=== PATIENT | male | born 1965 | race Caucasian/White ===

== ENCOUNTER 2020-07-13 18:52 | Inpatient (IN) ==
[2020-07-13 20:05] LABS: Basophils % 0.4 %; Eosinophils # 0.5 K/mcL (0.0-0.6); Eosinophils % 4.4 %; Hematocrit 30.6 % (37.5-50.1); Hemoglobin 9.1 g/dL (12.9-16.9); Immature Granulocytes % 4.5 % (0-4); Lymphocytes # 1.4 K/mcL (0.6-4.6); Lymphocytes % 12.9 %; Mean Corpuscular HGB Conc 29.7 g/dL (31.6-35.5); Mean Corpuscular Volume 94.2 fL (83.0-100.0); Mean Platelet Volume 10.3 fL (9.4-12.4); Monocytes % 8.7 %; Neutrophils # 7.6 K/mcL (1.6-8.9); Platelet Count 149 K/mcL (140-400); Red Blood Count 3.25 M/mcL (4.19-5.50); Red Cell Distribution Width 16.4 % (11.5-14.5); Segmented Neutrophils % 69.1 %
[2020-07-13 20:15] LABS: BUN/Creatinine Ratio 14 (6-26); Blood Urea Nitrogen 37 mg/dL (6-20); Calcium 8.1 mg/dL (8.6-10.3); Carbon Dioxide 24 mEq/L (23-29); Chloride 106 mEq/L (98-107); Glucose 135 mg/dL (70-105); Osmolality,Calculated 299 (280-300); Potassium 4.1 mEq/L (3.5-5.1); Prothrombin Time 12.1 Seconds (9.4-12.1); Sodium 139 mEq/L (136-145); eGFR For African Americans 32 (> 60); eGFR For Non-African Americans 26 (> 60)
[2020-07-13 20:16] LABS: Troponin I < 0.03 ng/mL (< 0.04)
[2020-07-13 20:17] LABS: Activated Partial Thrombo Time 28.1 Seconds (26.0-36.0)
[2020-07-13] MEDS ORDERED: 0.9 % Sodium Chloride 1,000 ML IVC ONE (21:44)
[2020-07-14] MEDS ORDERED: Perflutren Lipid Microsphere 1.3 ML in 0.9 % Sodium Chloride 8.7 ML IVP PRN (00:01)
[2020-07-14] MEDS ORDERED: Calcium Gluconate 1gm/50mL 1 GM/50 ML BAG IVPB ONE (00:07)
[2020-07-14] MEDS ORDERED: Naloxone 0.4 MG/ML INJ IVP PRN (00:09)
[2020-07-14] MEDS ORDERED: Acetaminophen 325 MG TABLET PO PRN (00:09)
[2020-07-14] MEDS ORDERED: Ondansetron 4 MG/2 ML VIAL IVP PRN (00:09)
[2020-07-14] MEDS: Aspirin Enteric Coated 81 MG Tablet PO SCH ×2 (00:58→07:50)
[2020-07-14 01:13] LABS: Bilirubin,Urine Negative (Negative); Blood,Urine Negative (Negative); Clarity,Urine Clear (Clear); Color,Urine Light-Yellow (Yellow); Glucose,Urine (UA) Normal (Normal); Ketones,Urine Negative (Negative); Leukocyte Esterase,Urine Negative (Negative); Nitrite,Urine Negative (Negative); Protein,Urine Trace mg/dL (Neg-Trace); Specific Gravity,Urine 1.012 (1.010-1.025); Urobilinogen,Urine Normal (Normal)
[2020-07-14 01:52] LABS: Hematocrit 29.9 % (37.5-50.1); Hemoglobin 9.1 g/dL (12.9-16.9); Mean Corpuscular HGB Conc 30.4 g/dL (31.6-35.5); Mean Corpuscular Hemoglobin 28.3 pg (28.0-33.3); Mean Corpuscular Volume 93.1 fL (83.0-100.0); Mean Platelet Volume 10.3 fL (9.4-12.4); Platelet Count 144 K/mcL (140-400); Red Blood Count 3.21 M/mcL (4.19-5.50); Red Cell Distribution Width 16.3 % (11.5-14.5); White Blood Count 10.6 K/mcL (4.3-11.1)
[2020-07-14 02:08] LABS: Estimated Average Glucose 131 mg/dl; Hemoglobin A1C 6.2 %
[2020-07-14 02:21] LABS: % Iron Saturation 16 % (20-55); Iron 31 mcg/dL (65-175); Transferrin 137 mg/dL (203-362)
[2020-07-14 02:22] LABS: Chol/HDL Ratio 4.1 (0-4.9); Magnesium 1.6 mg/dL (1.6-2.6); Potassium 4.7 mEq/L (3.5-5.1)
[2020-07-14 02:30] LABS: Thyroid Stimulating Hormone 0.518 mcIU/mL (0.340-5.600)
[2020-07-14 02:35] LABS: Ferritin 352 ng/mL (20-250)
[2020-07-14 02:41] LABS: Folate 3.2 ng/mL (3.0-16.0)
[2020-07-14] MEDS ORDERED: carvediloL 25 MG TABLET PO SCH ×2 (09:00→21:00)
[2020-07-14] MEDS ORDERED: Cyanocobalamin (B-12) 1,000 MCG/ML VIAL SQ ONE (15:29)
[2020-07-14] MEDS: *HR* Heparin 5,000 UNIT/ML VIAL SQ SCH (17:25)
[2020-07-14] MEDS: carvediloL 25 MG TABLET PO SCH (17:26)
[2020-07-14] MEDS: Gabapentin 300 MG CAPSULE PO SCH (20:05)
[2020-07-14] MEDS: hydrALAZINE 25 MG TABLET PO SCH (20:05)
[2020-07-15] MEDS ORDERED: Melatonin 3 MG TABLET PO ONE (01:32)
[2020-07-15 02:10] LABS: Hemoglobin 9.3 g/dL (12.9-16.9); Mean Corpuscular HGB Conc 29.1 g/dL (31.6-35.5); Mean Corpuscular Hemoglobin 27.9 pg (28.0-33.3); Mean Corpuscular Volume 96.1 fL (83.0-100.0); Mean Platelet Volume 11.1 fL (9.4-12.4); Platelet Count 122 K/mcL (140-400); Red Blood Count 3.33 M/mcL (4.19-5.50); Red Cell Distribution Width 16.2 % (11.5-14.5); White Blood Count 9.3 K/mcL (4.3-11.1)
[2020-07-15 02:23] LABS: Albumin 2.9 g/dL (3.5-5.7); Bilirubin,Direct 0.1 mg/dL (0.0-0.2); Bilirubin,Indirect 0.5 mg/dL (0.0-1.0); Bilirubin,Total 0.6 mg/dL (0.3-1.0); Calcium 8.5 mg/dL (8.6-10.3); Globulin 2.8 g/dL (2.4-3.5); Magnesium 1.6 mg/dL (1.6-2.6); Potassium 4.8 mEq/L (3.5-5.1); Total Protein 5.7 g/dL (6.4-8.9)
[2020-07-15] MEDS: *HR* Heparin 5,000 UNIT/ML VIAL SQ SCH ×2 (06:03→16:12)
[2020-07-15] MEDS: Cholecalciferol (D-3) 1,000 UNIT (25MCG) TABLET PO SCH (07:47)
[2020-07-15] MEDS: predniSONE 10 MG TABLET PO SCH (07:48)
[2020-07-15] MEDS: Gabapentin 300 MG CAPSULE PO SCH ×2 (07:48→20:16)
[2020-07-15] MEDS: carvediloL 25 MG TABLET PO SCH ×2 (07:48→16:12)
[2020-07-15] MEDS: Isosorbide MONOnitrate (24 HR) 60 MG TAB.ER.24H PO SCH (07:48)
[2020-07-15] MEDS: hydrALAZINE 25 MG TABLET PO SCH ×3 (07:48→20:17)
[2020-07-15] MEDS: (Sirolimus [Rapamune] 0.5 MG Tablet) PO SCH (07:48)
[2020-07-15] MEDS: Aspirin Enteric Coated 81 MG Tablet PO SCH (07:48)
[2020-07-15] MEDS: Cyanocobalamin (B-12) 1,000 MCG TABLET PO SCH (07:48)
[2020-07-15 09:05] LABS: Sodium, Urine 39.1 mEq/L
[2020-07-16] MEDS: *HR* Heparin 5,000 UNIT/ML VIAL SQ SCH (05:07)
[2020-07-16 06:39] LABS: Basophils % 0.3 %; Hemoglobin 8.9 g/dL (12.9-16.9)
[2020-07-16 06:41] LABS: Eosinophils # 0.3 K/mcL (0.0-0.6); Eosinophils % 2.7 %; Hematocrit 30.1 % (37.5-50.1); Immature Granulocytes % 2.2 % (0-4); Immature Platelets 8.4 % (1.1-6.1); Lymphocytes # 1.6 K/mcL (0.6-4.6); Lymphocytes % 14.9 %; Mean Corpuscular HGB Conc 29.6 g/dL (31.6-35.5); Mean Corpuscular Hemoglobin 27.4 pg (28.0-33.3); Mean Corpuscular Volume 92.6 fL (83.0-100.0); Mean Platelet Volume 11.5 fL (9.4-12.4); Monocytes # 0.7 K/mcL (0.0-1.3); Monocytes % 6.9 %; Neutrophils # 7.8 K/mcL (1.6-8.9); Platelet Count 137 K/mcL (140-400); Red Blood Count 3.25 M/mcL (4.19-5.50); White Blood Count 10.7 K/mcL (4.3-11.1)
[2020-07-16 06:57] LABS: Potassium 5.2 mEq/L (3.5-5.1)
[2020-07-16] MEDS: Isosorbide MONOnitrate (24 HR) 60 MG TAB.ER.24H PO SCH (07:37)
[2020-07-16] MEDS: predniSONE 10 MG TABLET PO SCH (07:37)
[2020-07-16] MEDS: hydrALAZINE 25 MG TABLET PO SCH (07:37)
[2020-07-16] MEDS: Cholecalciferol (D-3) 1,000 UNIT (25MCG) TABLET PO SCH (07:37)
[2020-07-16] MEDS: carvediloL 25 MG TABLET PO SCH (07:37)
[2020-07-16] MEDS: Cyanocobalamin (B-12) 1,000 MCG TABLET PO SCH (07:38)
[2020-07-16] MEDS: Gabapentin 300 MG CAPSULE PO SCH (07:38)
[2020-07-16] MEDS: Aspirin Enteric Coated 81 MG Tablet PO SCH (07:38)
[2020-07-16] MEDS: (Sirolimus [Rapamune] 0.5 MG Tablet) PO SCH (07:38)
[2020-07-16] MEDS ORDERED: Torsemide 20 MG TABLET PO SCH ×2 (09:00→17:00)
[2020-07-16 11:04] VITALS: BP 148/84
== END 2020-07-16 13:56 | disposition home or self-care (01) | DRG 312 ==
LOC: 3ANU 18:52 → EMEROOARM 18:52 → SUATTDRO 21:50 → 3ANU 22:40
PROVIDERS: ADMIT Student in an Organized Health Care Education/Training Program; ATTEND Pharmacist